=== PATIENT | male | born 1970 | race Caucasian/White ===

== ENCOUNTER 2018-12-25 05:43 | Day surgery (SDC) | payer MEDICARE, MEDICAID ==
[2018-12-25] MEDS ORDERED: MIDAZOLAM HCL 2MG/2ML VIAL IV ONE (05:44)
[2018-12-25] MEDS ORDERED: VANCOMYCIN HCL 1 GM VIAL IVPB ONE ×2 (05:44)
[2018-12-25] MEDS ORDERED: BUPIVACAINE 0.5% W/EPI MPF 30 ML VIAL IVP ONE (05:44)
[2018-12-25] MEDS ORDERED: ROPIVACAINE HCL (NAROPIN) /PF 5MG/ML 20ML VIAL IV ONE (05:44)
[2018-12-25] MEDS ORDERED: PROPOFOL 10 MG/ML VIAL IV ONE (05:44)
[2018-12-25] MEDS ORDERED: FENTANYL PF 100MCG/2ML VIAL IV ONE (05:44)
[2018-12-25] MEDS ORDERED: BUPIVACAINE LIPOSOME 266MG/20ML VIAL IV ONE (05:44)
[2018-12-25] MEDS ORDERED: TRANEXAMIC ACID 1,000 MG/10 ML ML IV ONE ×2 (05:44)
[2018-12-25] MEDS ORDERED: LIDOCAINE 2% MDV (20MG/ML) 20ML VIAL IV ONE (05:44)
[2018-12-25] MEDS ORDERED: DEXAMETHASONE 4 MG/ML 1ML VIAL IVP ONE (05:44)
[2018-12-25] MEDS ORDERED: MECLIZINE 25 MG TABLET PO ONE (06:00)
[2018-12-25] MEDS ORDERED: METOCLOPRAMIDE 10 MG TABLET PO ONE (06:00)
[2018-12-25] MEDS ORDERED: FAMOTIDINE 20MG TABLET PO ONE (06:00)
[2018-12-25] MEDS ORDERED: ACETAMINOPHEN 1,000 MG/100 ML BTL IV ONE (06:00)
[2018-12-25] MEDS ORDERED: CEFAZOLIN 2 Gram 2 GM/50 ML BAG IVPB ONE (06:00)
[2018-12-25] MEDS ORDERED: VANCOMYCIN HCL 1,000 MG in DEXTROSE 5 % IN WATER 250 ML IVPB ONE ×2 (06:00)
[2018-12-25] MEDS ORDERED: CELECOXIB 100 MG CAPSULE PO ONE (06:00)
[2018-12-25 07:09] LABS: ABO GROUP O; ANTIBODY SCREEN NEGATIVE (NEGATIVE); RH TYPE NEGATIVE
[2018-12-25] MEDS ORDERED: PROMETHAZINE HCL 25 MG TABLET PO PRN (08:22)
[2018-12-25] MEDS ORDERED: BISACODYL 10 MG SUPP RC PRN (08:22)
[2018-12-25] MEDS ORDERED: METOCLOPRAMIDE 10 MG TABLET PO PRN (08:22)
[2018-12-25] MEDS ORDERED: HYDROCODONE/APAP 7.5/325MG TABLET PO PRN ×2 (08:22)
[2018-12-25] MEDS ORDERED: ACETAMINOPHEN W/ CODEINE 300MG/30MG TABLET PO PRN ×2 (08:22)
[2018-12-25] MEDS ORDERED: AL HYDROX/MAG HYDROX 30ML UD PO PRN (08:22)
[2018-12-25] MEDS ORDERED: ACETAMINOPHEN 325 MG TAB PO PRN (08:22)
[2018-12-25] MEDS ORDERED: MAGNESIUM HYDROXIDE 30 ML UDC PO PRN (08:22)
[2018-12-25] MEDS ORDERED: TRAMADOL HCL 50 MG TABLET PO PRN ×2 (08:22)
[2018-12-25] MEDS ORDERED: NALOXONE 0.4 MG/1 ML VIAL IVP PRN (08:22)
[2018-12-25] MEDS ORDERED: KETOROLAC 30 MG/ML VIAL IVP PRN ×2 (08:22)
[2018-12-25] MEDS ORDERED: DIPHENHYDRAMINE HCL 25 MG CAPSULE PO PRN (08:22)
[2018-12-25] MEDS ORDERED: ONDANSETRON 4 MG ODT TABLET SL PRN (08:22)
[2018-12-25] MEDS ORDERED: HYDROCODONE/APAP 5/325MG TABLET PO PRN ×2 (08:22)
[2018-12-25] MEDS ORDERED: ACETAMINOPHEN W/ CODEINE 300MG/60MG TABLET PO PRN ×2 (08:22)
[2018-12-25] MEDS ORDERED: DOCUSATE SODIUM 100 MG CAPSULE PO SCH (10:00)
[2018-12-25] MEDS ORDERED: DEXTROSE 5 % AND 0.9 % NACL 1,000 ML IV PRN (10:30)
[2018-12-25] MEDS ORDERED: VANCOMYCIN HCL 500 MG in 0.9 % SODIUM CHLORIDE 100ML 100 ML IVPB SCH (11:00)
--- NOTE | 2018-12-25 13:17 | Rehab Evaluation ---
Patient Information - Patient Information Diagnosis: OA R knee Ordered Treatment: PT Evaluate and Treat Status: Initial Evaluation Surgery: Yes (R TKA) Date of Surgery: 12/25/18 Past Medical/Surgical Hx: PAST MEDICAL/SURGICAL HISTORY Past Surgical History RIGHT KNEE SCOPE ORAL SX C SCOPES EGD'S PMH - Respiratory Hx Respiratory Disorders Yes Hx Bronchitis Yes Hx Pneumonia Yes: IN PAST PMH - Cardiovascular Hx Cardiovascular Disorders Yes Hx Hypertension Yes: ON MEDS WITH FAIR CONTROL Exercise Tolerance Fair Comment: R/T KNEE PMH - Neuro Hx Neurological Disorders Yes Hx Weakness Yes: RIGHT KNEE Hx Paralysis Yes: RIGHT ARM FOR 6 MONTHS FROM NERVE IMPINGEMENT OK NOW PMH - GI Hx Gastrointestinal Disorders Yes Hx Gastroesophageal Reflux Yes: ON MEDS WITH GOOD CONTROL PMH - Hx Genitourinary Disorders No PMH - Endocrine Hx Endocrine Disorders No PMH - Musculoskeletal Hx Musculoskeletal Disorders Yes Hx Arthritis Yes: RIGHT KNEE Hx Back Injury Yes: LUMBAR 2000 Hx Gout Yes: ON MEDS WITH GOOD CONTROL PMH - Psych Hx Psychiatric Problems Yes Hx Anxiety Yes: AT TIMES PMH - Hematology/Oncology Hx Hematology/Oncology No Disorders Premorbid Status: Detail (The patient was independent with all mobility prior to surgery.) Social History: Detail (The patient lives with house in mobile home with 4 steps at the enterance and one handrail. The bathroom is equipped with a tub/ shower combination, hnad held shower, standard toilet . No grab bars are presetn. The patient has a walker with wheels and states he can borrow a cane and a shower chair.) Precautions: [place], Fall, Other (WBAT on the R LE.) - Time With Patient Total Time Spent With Patient (Min): 25 Treatment Procedures: Detail (Initial Evaluation, instruction in HEP and gait training.) Subjective Information - Subjective Information Per Patient (The patient had complaints of R knee pain level 2 to 3 at the highest using 0 to 10 pain scale.) Objective Data - Mental Status Patient Orientation: Oriented x3 - Visual Perception Appears within normal limits for therapeutic activities - ROM Not within normal limits (The patient's R knee was limited as to be expected s/ p surgery. All other AROM was WNL.) - Strength/Tone Not within normal limits (The patient's R LE strength was not tested secondary to s/p surgery, however strength was functional ie: patient was able to complete a SLR. The patient's L LE strength was Intact.) - Bed Mobility Independent (The patient was independent with supine to and from sit and scooting up in bed.) - Transfers Independent (The patient was independent with sit to and from stand transfer.) - Balance Balance Sitting: Good Balance Standing: Good - Sensation Intact - Gait Detail (The patient ambulated independently with 2 wheeled walker a distance of 100 feet x 1, WBAT on the R LE. The patient ambulated on stairs with use of railing and folded walker using proper technique with supervision for safety only.) Therapy Assessment - Therapy Assessment Detail (The patient was independent with bed mobility, transfers and ambulation. The patient has met all inpatient goals and is discharged from inpatient PT. The patient is to receive Home PT.) Patient Education - Patient Education Teaching Topic: Exercise/Activity (The patient completed the following TKA HEP: heel slides, quad sets, gluteal sets, ankle pumps, hamstring sets and SLR.) Response: Return Demonstration Teaching Method: Demonstration, Handout Teaching Recipient: Patient Barriers To Learning: Age Related Problem List - Problem List Physical Therapy Problem List: Detail (1) Decreased R LE strength and R knee AROM.) Goals - Goals Physical Therapy Goals: All inpatient PT goals have been met. The patient is discharged from inpatient PT and is to continue with Home PT. Prognosis - Prognosis Good Plan - Plan Physical Therapy Plan: The patient is discharged from inpatient PT.
--- NOTE | 2018-12-25 13:49 | Rehab Evaluation ---
Patient Information - Patient Information Diagnosis: OA R knee Ordered Treatment: OT Evaluate and Treat Status: Initial Evaluation Surgery: Yes (R TKA) Date of Surgery: 12/25/18 Past Medical/Surgical Hx: PAST MEDICAL/SURGICAL HISTORY Past Surgical History RIGHT KNEE SCOPE ORAL SX C SCOPES EGD'S PMH - Respiratory Hx Respiratory Disorders Yes Hx Bronchitis Yes Hx Pneumonia Yes: IN PAST PMH - Cardiovascular Hx Cardiovascular Disorders Yes Hx Hypertension Yes: ON MEDS WITH FAIR CONTROL Exercise Tolerance Fair Comment: R/T KNEE PMH - Neuro Hx Neurological Disorders Yes Hx Weakness Yes: RIGHT KNEE Hx Paralysis Yes: RIGHT ARM FOR 6 MONTHS FROM NERVE IMPINGEMENT OK NOW PMH - GI Hx Gastrointestinal Disorders Yes Hx Gastroesophageal Reflux Yes: ON MEDS WITH GOOD CONTROL PMH - Hx Genitourinary Disorders No PMH - Endocrine Hx Endocrine Disorders No PMH - Musculoskeletal Hx Musculoskeletal Disorders Yes Hx Arthritis Yes: RIGHT KNEE Hx Back Injury Yes: LUMBAR 2000 Hx Gout Yes: ON MEDS WITH GOOD CONTROL PMH - Psych Hx Psychiatric Problems Yes Hx Anxiety Yes: AT TIMES PMH - Hematology/Oncology Hx Hematology/Oncology No Disorders Premorbid Status: Detail (The patient was independent with all mobility prior to surgery. He and spouse shared home mgmt, meal prep, laundry and yard work.) Social History: Detail (The patient lives with spouse in a mobile home with 4 steps at the entrance and one handrail. The bathroom is equipped with a tub/ shower combination with a hand held shower and a standard toilet . No grab bars are present in the bathroom. The patient has a walker with wheels and states he can borrow a cane and a shower chair.) Precautions: [place], Fall, Other (WBAT on the R LE.) - Time With Patient Total Time Spent With Patient (Min): 25 Treatment Procedures: Detail (OT eval low complexity) Subjective Information - Subjective Information Per Patient Objective Data - Pain Pain Present: Yes (2-3/10) - Mental Status Patient Orientation: Oriented x3 - Visual Perception Appears within normal limits for therapeutic activities - ROM Within normal limits (Robert UE AROM WNL) - Strength/Tone Within normal limits (Robert UE strength WNL) - Coordination Appears within normal limits for therapeutic activities - Bed Mobility Independent (Ind with supine to sit) - Transfers Independent (Ind with sit to stand from EOB.) - Balance Balance Sitting: Good Balance Standing: Good - Sensation Intact - Gait Detail (Pt ambulating in room with 2 wheeled walker and SBA) - ADL's/IADL's Detail (Pt educated and able to demonstrate learning of modified LE dressing techniques including doffing briefs and slipper socks and donning boxer shorts, pants, socks and tennis shoes. Pt educated re: kitchen and shower safety and modifications, he verbalized understanding.) Therapy Assessment - Therapy Assessment Detail (Pt is Ind with modified LE dressing techniques.) Problem List - Problem List Occupational Therapy Problem List: Detail (No current IP OT problems identified. ) Goals - Goals Occupational Therapy Goals: No current IP OT goals identified. Prognosis - Prognosis Good Plan - Plan Occupational Therapy Plan: No further IP OT recommended. Thank you for this referral.
--- NOTE | 2018-12-26 20:06 | Operative Note ---
DATE OF SURGERY: 12/25/2018 PREOPERATIVE DIAGNOSIS: END-STAGE RIGHT KNEE ARTHROSIS. POSTOPERATIVE DIAGNOSIS: END-STAGE RIGHT KNEE ARTHROSIS. PROCEDURE: RIGHT TOTAL KNEE ARTHROPLASTY. SURGEON: LOUISA JOHNSON M.D. ANESTHESIA: SPINAL. KEESHA GAMEZ CRNA. COMPLICATIONS: NONE. BLOOD LOSS: MINIMAL. TOURNIQUET TIME: 65 MINUTES. 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 COMPONENTS PLACED: 2 gram Vancomycin, cemented Al[employer] Journey II Oxinium total knee arthroplasty system size 8 femoral component, size 7 tibial baseplate, a 35 mm cemented patellar component, and a size 11 mm thick poly insert. INDICATION FOR OPERATION: This is a 48-year-old male who has had multiple nonoperative and operative treatments for knee arthritis including multiple sets of injections, anti-inflammatories. He has had knee arthroscopy to no avail and still with persistent pain in his knee and I offered him a knee replacement at this point and he wished to proceed. PROCEDURE: The patient was brought to the O.R. and placed in the supine position after spinal anesthesia was induced and the right lower extremity and knee were prepped and draped in sterile fashion. The right knee was prepped again with ChloraPrep after it was draped. Intraoperative time-out was performed. An incision was marked out and infiltrated with 0.5% Marcaine with Epinephrine. The leg was exsanguinated with an Esmarch. The knee was inflated to 215 mmHg pressure. The knee was re-prepped already. Next, the skin and subcutaneous tissue were dissected down and medial and lateral skin flaps were made. I incised the capsule medially around the medial border of the of the patella to the tibial tubercle. I incised the vastus medialis in line with the fibers in a mid vastus approach. I everted the patella , partially resected the retropatellar fat pad. I elevated the capsule subperiosteally and medially. I flexed the knee. He had significant chondromalacia in the medial compartment. We drilled the intercondylar drill hole and inserted the intramedullary guide angie with a 6 degree cutting block. We aligned off the distal femoral condyles and pinned it in the +2 mm position and cut the distal femoral condyles. Next, we placed the sizing jig on the distal femoral condyle and sized to be right on size 8. Through the previously placed pinholes, we placed the 5-in-1 cutting jig. We dialed in the anterior cut so it would come out flush without notching. We cut that cut and it was a good cut. We pinned the cutting jig and cut the remainder of the chamfer cuts in the usual fashion. We placed the size 7 femoral component, centered it and pinned it, and reamed out and box osteotomed the cruciate bone block. Attention was turned to the tibia. We seated the spikes in the anterior tubercular groove two fingerbreadths distally off the anterior tibial cortex and referenced for a 7 mm cut off the higher lateral plateau. There we pinned the cutting jig provisionally in place with two anterior and posterior pins. We then rechecked alignment of the cutting jig with a drop angie centered on the tibial anatomic axis and cross-pinned it to complete its fixation and then cut the tibia. Next, we removed osteophytes from the posterior femoral condyles, checked flexion and extension gaps. We sized up to an 11 mm thick insert block that allowed for 2 to 3 mm of varus/valgus laxity in flexion and extension. Overall alignment of cuts in extension with the anatomic valgus orientation with the alignment angie centered on the hip joint and the ankle joint. Next, we took the knee into flexion. We sized the tibial baseplate to be a size 7. We replaced all trial components. We set the rotation of the tibial baseplate again in extension using the alignment angie centered on the hip joint and the ankle joint. We marked electrocautery moncada on the anterior tibial cortex off the laser moncada on the tibial baseplate. Attention was turned to the patella. We measured the patella. We set the cutting jig to allow for a 9 mm thick poly insert in 17. We cut the patella. It was right on 16 to 17. We then chamfered off the lateral patellar facet, sized it to be a 35 mm. We medialized as much as possible and drilled three peg holes and did a trial range of motion of the patella and mixed cement. The knee tracked nicely hands-free. We had full extension and flexion to 140 to 150 degrees. The patella tracked nicely. Next, we took the knee into flexion. We removed all trial components. We set the tibial baseplate again off the laser moncada on the tibial baseplate. We pinned it in place and drilled out and keel-punched the keel hole. We changed gloves and brought in a clean sheet. We copiously irrigated the bony surfaces. We placed a bone plug in the femoral canal hole and the drill in the tibial hole. We pre-coated both surfaces and impacted down the tibial component first and removed excess cement and then the femoral component and removed excess cement. We placed the trial tibial poly liner and held the knee in extension and clamped down the patellar component until the cement hardened. Once the cement hardened, we took the knee into flexion. We distracted the knee with bone hook and sponge. We removed any excess cement off the edges of the components and irrigated copiously again. We injected the deep capsule working from the midline out peripherally deep to peripheral with our 0.5% Marcaine with Epinephrine, tranexamic acid, and Exparel mixture. We then impacted down the real tibial poly insert and verified it was interlocked medially and laterally. Final range of motion revealed the same. We irrigated the knee copiously and closed in flexion using running #2 Quill suture and closed the skin deep with #2-0 Vicryl. A provisional dressing was applied and will be changed to SHARON dressing prior to discharge today outpatient with home nurse and home therapy at home waiting for him today. cc: Dr. Letty May JOB NUMBER: [id number] MTDD
== END 2018-12-25 14:30 | disposition home or self-care (01) ==
LOC: SUR 05:43 → MEDSURG 10:34 → SUR 14:30
PROVIDERS: ATTEND Orthopaedic Surgery
DX: M17.11 Unilateral primary osteoarthritis, right knee (principal); I10 Essential (primary) hypertension; M10.9 Gout, unspecified; K21.9 Gastro-esophageal reflux disease without esophagitis; F17.210 Nicotine dependence, cigarettes, uncomplicated
CPT/HCPCS: 27447; 01402; 64447; 86900; 86901; 86850; 76942; J3370; J3010; J0690; C9290; J3490; J2795; J7060